=== PATIENT | female | born 2000 | race Caucasian/White ===

== ENCOUNTER 2022-04-12 19:51 | Emergency (ER) | payer OTHER ==
[2022-04-12] MEDS ORDERED: Acetaminophen/Codeine 30-300mg Tablet ONE ×2 (20:05→20:07)
[2022-04-12] MEDS ORDERED: Ondansetron ODT 4 MG TAB ONE (20:47)
== END 2022-04-12 21:05 | disposition home or self-care (01) ==
LOC: BURERS 19:51
DX: S52.502A Unspecified fracture of the lower end of left radius, initial encounter for closed fracture (principal); X58.XXXA Exposure to other specified factors, initial encounter
CPT/HCPCS: 25605; Q0162

== ENCOUNTER 2022-04-14 20:01 | Emergency (ER) | payer OTHER ==
[2022-04-14] MEDS ORDERED: HYDROcodone/Acetaminophen 5/325 mg Tablet ONE (20:28)
== END 2022-04-14 20:26 | disposition home or self-care (01) ==
LOC: BURERS 20:01
DX: S62.102A Fracture of unspecified carpal bone, left wrist, initial encounter for closed fracture (principal); X58.XXXA Exposure to other specified factors, initial encounter
CPT/HCPCS: 99281

== ENCOUNTER 2025-05-05 19:54 | Emergency (ER) | payer MEDICAID, OTHER ==
[2025-05-05] MEDS ORDERED: Oxytocin 10 UNITS/ML VIAL ONE ×2 (20:32)
== END 2025-05-05 21:05 | disposition short-term general hospital (02) ==
LOC: BURERS 19:54
DX: O62.3 Precipitate labor (principal); O80 Encounter for full-term uncomplicated delivery; Z3A.39 39 weeks gestation of pregnancy
CPT/HCPCS: 96374; J2590